=== PATIENT | female | born 1970 ===

== ENCOUNTER 2022-07-21 13:26 | Emergency (ER) | payer BC ==
[2022-07-21 13:38] VITALS: BP 134/88; PULSE 108
[2022-07-21 13:56] LABS: BASOPHILS ABSOLUTE AUTO 0.05 K/uL (0.02-0.10); BASOPHILS PERCENT AUTO 0.8 % (0.0-0.5); EOSINOPHILS PERCENT AUTO 1.7 % (1.0-5.0); HEMOGLOBIN 12.8 g/dL (11.5-16.5); LYMPHOCYTES ABSOLUTE AUTO 1.59 K/uL (1.50-4.00); LYMPHOCYTES PERCENT AUTO 26.3 % (20.0-40.0); MEAN CORPUSCULAR HEMOGLOBIN 33.4 pg (27.0-32.0); MEAN CORPUSCULAR HGB CONC 35.6 g/dL (31.0-35.0); MEAN CORPUSCULAR VOLUME 94 fL (76-96); MEAN PLATELET VOLUME 10.7 fL (6.0-10.0); MONOCYTES ABSOLUTE AUTO 0.44 K/uL (0.20-0.80); MONOCYTES PERCENT AUTO 7.3 % (3.0-10.0); NEUTROPHILS ABSOLUTE AUTO 3.86 K/uL (2.00-7.50); NEUTROPHILS PERCENT AUTO 63.9 % (45.0-70.0); PLATELET COUNT,PLT 317 K/uL (150-500); RED BLOOD CELL COUNT 3.83 M/uL (3.80-5.80); RED CELL DISTRIBUTION WIDTH 12.1 % (11.0-16.0)
[2022-07-21 14:12] LABS: ANION GAP 10.1 mmol/L (5.0-15.0); BUN/CREATININE RATIO 20.9 (6-25); CALCIUM 8.7 mg/dL (8.5-10.1); CARBON DIOXIDE,CO2 28.5 mmol/L (21.0-32.0); CREATININE 0.91 mg/dL (0.55-1.02); EST CRCL DRUG DOSING (CG) 57.85 mL/min; POTASSIUM,K 3.6 mmol/L (3.5-5.1)
[2022-07-21] MEDS ORDERED: Ketorolac 60 MG/2 ML SDV ONE (14:19)
[2022-07-21] MEDS ORDERED: Ketorolac 60 MG/2 ML SDV IM ONE (14:22)
== END 2022-07-21 16:22 | disposition home or self-care (01) ==
LOC: LB.ED 13:26
DX: R07.89 Other chest pain (principal)
CPT/HCPCS: 36415; 71045; 80048; 84484; 85025; 93005; 96372; 99285-25; J1885